=== PATIENT | male | born 1930 | race Caucasian/White ===

== ENCOUNTER → 2018-01-03 | Day surgery (SDC) | payer OTHER ==
[2017-12-25 09:49] VITALS: Ht 182.9 cm; Wt 80.9 kg
[~2018-01-03] VITALS: Ht 182.9 cm; Wt 80.9 kg
[~2018-01-03] MED LIST: AGG PO; ATOR-26 PO; CALC600T9 PO; FINA5TAB PO; INSDGI SC; LIDOCAINE HCL 2% 2 ML VIAL (20MG/ML) ONE; LOSA1TAB PO; MULT-506 PO; NTRGSL/4 UT; ONGLYZA PO; PRLSR20 PO; PROPOFOL IV EMULSION 10 MG/ML 20 ML VIAL ONE; SODIUM CHLORIDE 0.9% 500ML 500 ML IV ONE; TAMS0.4C38 PO
--- NOTE | 2018-01-03 08:24 | Endo History and Physical ---
History & Physical Date of Service: Jan 03, 2018. Chief Complaint: Referring Physician: History of Present Illness 87 yo presenting for odynophagia, denies dysphagia to me, improved since increase in PPI. No alarm symptoms Past Medical History Diabetes, Arthritis, Male Genitourinary Prob., Reflux, Cancer, High Cholesterol , Hypertension, CVA/TIA Past Surgical History Hx Cardiac Surgery: Yes (CABG 3 VESSELS 08/2016) Hx Internal Defibrillator: No Hx Pacemaker: No Hx Abdominal Surgery: Yes (GB SURG,HERNIA) Hx of Implantable Prosthesis: No Hx Post-Op Nausea and Vomiting: No Hx Cancer Surgery: Yes (EXCISION SKIN CANCER FACE/SHOULDER) Hx Thoracic Surgery: No Hx Orthopedic: Yes (BONE STIM TO BACK,REMOVAL BONE STIM,LUMBAR FUSION X 2,) Hx Urinary Tract Surgery: No Family History None Social History Smoking Status: Never Smoker Hx Substance Use: No Hx Alcohol Use: Yes ([employer]) Allergies Coded Allergies: Diclofenac (Verified Allergy, Unknown, UNKNOWN, 12/25/17) Hydrochlorothiazide (Verified Allergy, Unknown, UNKNOWN, 12/25/17) Naproxen (Verified Allergy, Unknown, UNKNOWN, 12/25/17) Meperidine (Verified Adverse Reaction, Unknown, HALLUCINATIONS, 12/25/17) Current Medications Reported Home Medications Medications Dose Route/Sig Max Daily Dose Days Date Category Dose Instructions Cozaar (Losartan Potassium) 25 Mg Tab 12.5 Mg PO QPM 12/25/17 Reported Lantus (Insulin Glargine) 100 Unit/Ml Inj 15 SC QAM 12/25/17 Reported Prilosec (Omeprazole) 20 Mg Capcr 20 Mg PO QPM 12/25/17 Reported [Onglyza] 2.5 Mg PO QAM 12/25/17 Reported Calcium + D (Calcium Carbonate-Vitamin D) 1 Tab Tab 1 Tab PO QPM 09/06/15 Reported Multivitamin (Multivitamins) Tab 1 Tab PO QAM 09/06/15 Reported Proscar (Finasteride) 5 Mg Tab 5 Mg PO QAM 09/06/15 Reported Nitrostat (Nitroglycerin) 0.4 Mg Tab 0.4 Mg UT PRN 09/06/15 Reported Flomax (Tamsulosin Hcl) 0.4 Mg Cap 0.4 Mg PO BID 09/06/15 Reported Aggrenox 200MG/25MG (Aspirin-Dipyridamole 25MG/200MG) 1 Cap Cap 1 Cap PO BID 09/06/15 Reported PT WILL CHECK [facility] FOR INSTRUCTIONS Lipitor (Atorvastatin Calcium) 80 Mg Tab 80 Mg PO QPM 09/06/15 Reported Vital Signs Weight (Kilograms): 80.91 Height (Feet): 6 Height (Inches): 0 Physical Exam General Appearance: WD/WN, no apparent distress Respiratory/Chest: Respiratory effort: no dyspnea Auscultation: breath sounds normal, CTA except as noted Cardiovascular: Apical Impulse: not displaced Heart Auscultation: RRR, normal S1, normal S2 Abdomen: Bowel Sounds: normal Inspection & Palpation: soft, non-distended Liver: non-tender Assessment and Plan 87 yo presenting for EGD for odynophagia
--- NOTE | 2018-01-03 08:56 | Discharge Instructions ---
Endoscopy Patient Instructions Date / Procedure(s) Performed Jan 03, 2018. EGD Allergy Information Coded Allergies: Diclofenac (Verified Allergy, Unknown, UNKNOWN, 12/25/17) Hydrochlorothiazide (Verified Allergy, Unknown, UNKNOWN, 12/25/17) Naproxen (Verified Allergy, Unknown, UNKNOWN, 12/25/17) Meperidine (Verified Adverse Reaction, Unknown, HALLUCINATIONS, 12/25/17) Discharge Date / Findings Jan 03, 2018. Large Hiatal Hernia Severe esophagitis, likely from reflux, biopsied to rule out malignancy. Recommendations 1. Soft diet-no meats that are not crumbled up 2. Increase your Prilosec to 40 mg twice daily 30 minutes prior to breakfast and 30 minutes prior to dinner. 3. We will plan on repeating your EGD in 4-6 wks to ensure healing and if needed dilation at that time 4. Hold Aggrenox for two additional days Medication Instructions Stopped Medication(s): Patient was told to take finasteride and flomax this am. Provider Instructions Activity Restrictions - No exercising or heavy lifting for 24 hours. - Do not drink alcohol the day of the procedure. - Do not drive a car or operate machinery until the day after the procedure. - Do not make any important decisions or sign important papers in 24 hours after the procedure. Following Day: - Return to full activity which may include returning to work/school. Diet Start your diet with liquids and light foods (jello, soup, juice, toast). Then eat your usual diet if not nauseated. Treatment For Common After Affects For mild abdominal pain, bloating, or excessive gas: - Rest - Eat lightly - Lie on right side Follow-Up Information Follow-up with Dr. Bony Donovan as scheduled Anesthesia Information What You Should Know You have had a procedure that required some medicine to reduce anxiety and discomfort. This treatment is called moderate sedation. After receiving the treatment, you may be sleepy, but you will be able to breathe on your own. The effects of the treatment may last for several hours. Follow these instructions along with Activity/Diet recommendations noted above: * Do NOT do anything where dizziness or clumsiness would be dangerous. * Rest quietly at home today, then you can be up and about tomorrow. * Have a responsible person stay with you the rest of today. * You may have had an I.V. today. If so, you may take the dressing off later today. Recommendations Call your doctor if: * Trouble breathing * Continuous vomiting for more than 24 hours * Temperature above 101 degrees * Severe abdominal pain or bloating * Pain not relieved by pain medicine ordered * There is increased drainage or redness from any incision * A large amount of rectal bleeding greater than 2-3 tablespoons. (If you had a polyp/s removed or have hemorrhoids, a small amount of blood - from the rectum is to be expected.) * You have any unanswered questions or concerns. IN THE EVENT OF A SERIOUS EMERGENCY, GO TO THE NEAREST EMERGENCY ROOM Your discharge instructions were prepared by provider Gael Veras. Patient Instructions Signature Page Hernesto Marrufo Patient (or Guardian) Signature/Date: I have read and understand the instructions given to me by my caregivers. Caregiver/RN/Doctor Signature/Date: The above-named patient and/or guardian has received patient instructions on this date. + Original Patient Signature Page (only) stays with chart. Please make copy for patient.
--- NOTE | 2018-01-03 09:00 | GI REPORT ---
Patient Name: Hernesto Marrufo Procedure Date: 01/03/2018 8:17 AM Date of : 1930 Admit Type: Outpatient Age: 87 Gender: Male Attending MD: Gael Veras MD Procedure: Upper GI endoscopy Providers: Gael Veras MD Referring MD: Nava Ghosh NP Indications: Odynophagia Medicines: Monitored Anesthesia Care Complications: No immediate complications. Estimated blood loss: None. Estimated Blood Loss: Estimated blood loss: none. Procedure: Pre-Anesthesia Assessment: - Pre-Anesthesia Assessment: - Prior to the procedure, a History and Physical was performed, and patient medications, allergies and sensitivities were reviewed. The patient's tolerance of previous anesthesia was reviewed. Please see [employer] for complete details. - The risks and benefits of the procedure and the sedation options and risks were discussed with the patient. All questions were answered and informed consent was obtained. - Patient identification and proposed procedure were verified prior to the procedure by the physician and the nurse. The procedure was verified in the pre-procedure area in the procedure room. After obtaining informed consent, the endoscope was passed carefully and meticuously under direct vision and only advanced when the lumen was clearly identified, C02 insuflation was utilized throughout the entirity of the procedure. Throughout the procedure, the patient's blood pressure, pulse, and oxygen saturations were monitored continuously. After obtaining informed consent, the endoscope was passed under direct vision. Throughout the procedure, the patient's blood pressure, pulse, and oxygen saturations were monitored continuously. The scope was introduced through the mouth, and advanced to the second part of duodenum. The upper GI endoscopy was accomplished without difficulty. The patient tolerated the procedure well. Findings: A large hiatal hernia was present. LA Grade D (one or more mucosal breaks involving at least 75% of esophageal circumference) esophagitis with no bleeding was found. Biopsies were taken with a cold forceps for histology. Friable and bled with gentle contact, likely muscular ring present, not dilated given friability. The entire examined stomach was normal. The examined duodenum was normal. Impression: - Large hiatal hernia. - LA Grade D reflux esophagitis. Biopsied. - Normal stomach. - Normal examined duodenum. Recommendation: - Written discharge instructions were provided to the patient. - Discharge patient to home (with escort). - Return to referring physician as previously scheduled. - Soft diet-no meats that are not crumbled up - Increase your Prilosec to 40 mg twice daily 30 minutes prior to breakfast and 30 minutes prior to dinner. - We will plan on repeating your EGD in 4-6 wks to ensure healing and if needed dilation at that time - Hold Aggrenox for two additional days Gael Veras MD 01/03/2018 9:00:07 AM This report has been signed electronically. Note Initiated On: 01/03/2018 8:17 AM Number of Addenda: 0 I attest to the content of the Intraoperative Record and orders documented therein, exceptions below {[id number]}
[2018-01-03 09:31] VITALS: BP 187/91; PULSE 79; O2SAT 98
--- NOTE | 2018-01-03 09:45 | Anesthesiology Progress Note ---
Anesthesia Post Op Note Date & Time Jan 03, 2018 at 09:45 Vital Signs Pain Intensity: 0 Vital Signs Past 12 Hours Date Time Temp Pulse Resp B/P (MAP) Pulse Ox O2 Delivery O2 Flow Rate FiO2 01/03/18 09:14 67 18 183/85 (117) 98 Room Air 01/03/18 08:59 70 18 139/64 (89) 99 Room Air 01/03/18 08:26 36.2 74 18 189/78 (115) 98 Room Air Notes Mental Status: alert / awake / arousable, participated in evaluation Pt Amnestic to Procedure: Yes Nausea / Vomiting: adequately controlled Pain: adequately controlled Airway Patency, RR, SpO2: stable & adequate BP & HR: stable & adequate Hydration State: stable & adequate Anesthetic Complications: no major complications apparent
== END | disposition home or self-care (01) ==
LOC: C.GI 07:42
PROVIDERS: ATTEND Internal Medicine
DX: R13.10 Dysphagia, unspecified (principal); K44.9 Diaphragmatic hernia without obstruction or gangrene; K21.0 Gastro-esophageal reflux disease with esophagitis; I25.10 Atherosclerotic heart disease of native coronary artery without angina pectoris; M19.90 Unspecified osteoarthritis, unspecified site; E11.9 Type 2 diabetes mellitus without complications; I10 Essential (primary) hypertension; I48.91 Unspecified atrial fibrillation; Z86.73 Personal history of transient ischemic attack (TIA), and cerebral infarction without residual deficits; Z95.1 Presence of aortocoronary bypass graft; Z85.828 Personal history of other malignant neoplasm of skin; Z79.4 Long term (current) use of insulin